=== PATIENT | female | born 1945 | race Caucasian/White ===

== ENCOUNTER → 2021-08-11 09:31 | Outpatient (CLI) | payer MEDICARE, OTHER, SELFPAY ==
[2021-08-11 11:33] LABS: COVID19 -Nasal RAPID Negative (Negative)
== END ==
PROVIDERS: Visit Provider Family Medicine Sleep Medicine
DX: Z20.822 Contact with and (suspected) exposure to COVID-19 (principal)
CPT/HCPCS: 87635; C9803

== ENCOUNTER → 2021-10-21 10:37 | Outpatient (CLI) | payer MEDICARE, OTHER, SELFPAY ==
[2021-10-21 12:46] LABS: COVID19 -Nasal RAPID Negative (Negative)
== END ==
PROVIDERS: PCP Physician Assistant Medical; Visit Provider Surgery
DX: Z20.822 Contact with and (suspected) exposure to COVID-19 (principal); Z01.812 Encounter for preprocedural laboratory examination
CPT/HCPCS: 87635; C9803

== ENCOUNTER 2021-10-22 10:07 | Day surgery (SDC) | payer MEDICARE, OTHER, SELFPAY ==
[2021-10-22 10:34] VITALS: BP 136/75; PULSE 76; RESP 16; TEMP 36.6; O2SAT 100
[2021-10-22 10:36] VITALS: BMI 27.8
[2021-10-22] MEDS: SODIUM CHLORIDE 0.9% 1,000 ML 84 ML IV (10:40)
--- NOTE | 2021-10-22 11:34 | PM.HP.1 ---
History of Present Illness History of Present Illness Chief complaint: SDC/Colonoscopy Narrative: History of large adenomatous colon polyp 5 years ago need for follow-up colonoscopy. Patient History Medical History (Updated 10/22/21 @ 10:32 by Yeny Lujan RN) Adenomatous colon polyp Osteopenia Surgical History (Updated 10/22/21 @ 10:25 by Yeny Lujan RN) History of colonoscopy with polypectomy History of hysterectomy History of tonsillectomy Family & Social History Social History: household members spouse Tobacco & Substance use: Tobacco type cigarettes Smoking Status Former smoker alcohol intake frequency a few times a month Substance Use Type does not use Meds Home Medications and Allergies Home Medications Medication Instructions Recorded Confirmed Type cholecalciferol (vitamin D3) 125 125 mcg PO DAILY 10/22/21 10/22/21 History mcg (5,000 unit) tablet (Vitamin D3) Allergies Allergy/AdvReac Type Severity Reaction Status Date / Time codeine AdvReac Intermediate Bad Verified 10/22/21 10:30 headache Exam Vital Signs (past 8 hours): - 10/22/21 10:34 Temperature 97.8 F Pulse Rate 76 Respiratory Rate 16 Blood Pressure 136/75 Pulse Oximetry 100 Oxygen Delivery Method Room Air Oxygen Delivery Method Room Air Narrative Exam Narrative: Oropharynx free of lesions Chest clear to auscultation percussion Cardiac exam reveals no S3 or murmur Assessment & Plan Assessment & Plan narrative: Assessment history of large colon polyp need for follow-up colonoscopy and this will probably be her last. Risks, benefits, alternatives have been explained. Time Spent With Patient Critical Care time: I spent a total of [] minutes of critical care time on this patient's care today; this time is exclusive of procedural time.
--- NOTE | 2021-10-22 11:35 | PM.OP.COLON ---
Operative Date/Time/Diagnoses Date of procedure: 10/22/21 Procedure & Clinicians Study performed: Colonoscopy Indications: History of large adenomatous colon polyp 6 years ago with colonoscopy 5 years ago showing it to be completely removed. Need for follow-up colonoscopy Surgeon: Kathy England Procedure Notes Procedure in detail: After informed consent was obtained the patient was placed in left lateral position. The video colonoscope was introduced the rectum slowly advanced cecum. On slow withdrawal mucosa was carefully examined. Preparation was good. The scope was removed. The patient tolerated procedure well. Blood loss none Complications none Sedation mac Findings 1. Tattoo present at 60 cm/splenic flexure. Photos taken 2. Scattered mild diverticulosis 3. Otherwise negative colonoscopy to cecum Given minutes Stremler's age and negative colonoscopy this could represent her last screening exam.
[2021-10-22 12:05] VITALS: BP 95/62; PULSE 69; RESP 16; TEMP 36.4; O2SAT 96
[2021-10-22 12:11] VITALS: BP 111/70; PULSE 65; RESP 18; O2SAT 98
[2021-10-22 12:12] VITALS: BP 110/65; PULSE 68; RESP 13; TEMP 36.7; O2SAT 98
--- NOTE | 2021-10-22 12:13 | SUR.PHASEI ---
Stable pacu stay
[2021-10-22 12:16] VITALS: BP 110/65; PULSE 66; RESP 19; O2SAT 98
[2021-10-22 12:28] VITALS: BP 128/72; PULSE 62; RESP 18; TEMP 36.6; O2SAT 99
== END 2021-10-22 12:43 | disposition home or self-care (01) ==
PROVIDERS: PCP Physician Assistant Medical; Referring Provider Internal Medicine Gastroenterology; Visit Provider Internal Medicine Gastroenterology
PROC: 0DJD8ZZ Inspection of Lower Intestinal Tract, Via Natural or Artificial Opening Endoscopic (ICD-10-PCS; CPT 45378; principal; 2021-10-22 11:30)
DX: Z12.11 Encounter for screening for malignant neoplasm of colon (principal); Z86.010 Personal history of colon polyps; K57.30 Diverticulosis of large intestine without perforation or abscess without bleeding
CPT/HCPCS: G0105; J2704

== ENCOUNTER 2022-11-21 07:14 | Emergency (ER) | payer MEDICARE, OTHER, SELFPAY ==
[2022-11-21] VITALS (14 sets, daily range): BP systolic 118–174; BP diastolic 58–100; PULSE 65–86; RESP 13–29; TEMP 36.7; O2SAT 95–100; BMI 28.5
--- NOTE | 2022-11-21 07:34 | DI.CT.S_ITS ---
PROCEDURE: CT HEAD/BRAIN WO CON INDICATIONS: woke up with vertigo TECHNIQUE: Noncontrast 4.5 mm thick angled axial sections acquired from the foramen magnum to the vertex, with coronal and sagittal reformats. For radiation dose reduction, the following was used: automated exposure control, adjustment of mA and/or kV according to patient size. COMPARISON: None. FINDINGS: Image quality: Excellent. CSF spaces: Basal cisterns are patent. No extra-axial fluid collections. Ventricles are normal in size and shape. Brain: No midline shift. No intracranial masses or hemorrhage. Rg-white matter interface is normal. Skull and face: Calvarium and visualized facial bones are intact, without suspicious lesions. Sinuses: Visualized sinuses and mastoids are clear. IMPRESSION: No acute intracranial pathology. Dictated by: Kali Contreras M.D. on 11/21/2022 at 8:39 Approved by: Kali Contreras M.D. on 11/21/2022 at 8:40
--- NOTE | 2022-11-21 07:35 | DI.CT.S_ITS ---
PROCEDURE: CT ANGIO HEAD AND NECK INDICATIONS: woke up with vertigo TECHNIQUE: After the administration of intravenous contrast, 1 mm thick sections acquired from the aortic arch through the [place] of [place]. 3-dimensional tphqyaz-wcknumuru-tmuugnamxn (MIP) and/or volume rendering reformats were acquired of the central intracranial vasculature and neck separately. For radiation dose reduction, the following was used: automated exposure control, adjustment of mA and/or kV according to patient size. COMPARISON: None. FINDINGS: Image quality: Diagnostic. BRAIN: CSF spaces: Ventricles are normal in size and shape. Basal cisterns are patent. No extra-axial fluid collections. Brain: No midline shift. No intracranial bleeds or masses. Rg-white matter interface appears intact. Skull and face: Calvarium and facial bones appear intact, without suspicious lesions. Orbits appear normal. Sinuses: Sinuses and mastoids are clear. HEAD CT ANGIOGRAPHY: Anterior circulation: Intracranial internal carotid arteries are normal in size and flow. The flow within the paired anterior cerebral arteries is normal and symmetric. The flow within the middle cerebral arteries is normal and symmetric. The anterior communicating artery is seen. No aneurysms are seen. Posterior circulation: Visualized portions of the vertebral arteries demonstrate normal caliber, and join to form a normal appearing basilar artery. Flow within the posterior cerebral arteries is normal and symmetric. No aneurysms are seen. NECK CT ANGIOGRAPHY: Carotid system: The great vessels demonstrate a conventional anatomy as they arise from the aortic arch. The origins of the common carotid arteries appear patent. The common carotid arteries demonstrate normal caliber and courses. The bifurcation regions are both widely patent. The internal carotid arteries demonstrate normal calibers and courses. Posterior circulation: The origins of the vertebral arteries both appear widely patent. The more superior extracranial portions of both vertebral arteries also demonstrate normal courses and calibers. They join to form a normal appearing basilar artery. PCOM on the right. Soft tissues: Visualized neck soft tissues demonstrate no suspicious abnormalities. Bones: No suspicious bony lesions. Visualized cervical spine appears normally aligned. IMPRESSION: No large vessel occlusion. Any quantitative measurements of stenosis were performed using NASCET criteria. Dictated by: Kali Contreras M.D. on 11/21/2022 at 8:40 Approved by: Kali Contreras M.D. on 11/21/2022 at 8:44
--- NOTE | 2022-11-21 07:35 | ED_ITS ---
HPI - Neuro Symptoms/Deficit General Chief Complaint: Dizziness Stated Complaint: Sweaty, Dizzy Time Seen by Provider: 11/21/22 07:20 Source: patient and EMS Mode of arrival: EMS Limitations: no limitations History of Present Illness HPI Narrative: 77-year-old female with history of prior episode labyrinthitis, hysterectomy no other reported medical issues states she woke up this morning feeling very sweaty in the room was spinning. She states initially on her back just did not feel right was very sweaty and then rolled over and states the room was spinning. Any time she opens her eyes or tries to move her head the room is spinning she had 1 prior episode where she states she had labyrinthitis in the past. She states it was not intense and that episode started while she was seated on the couch. She states no headaches, no vision changes no blurred or double vision. No chest pain or pressure no shortness of breath. She is had nausea but no vomiting this morning. No diarrhea constipation, no dysuria urgency or frequency no incontinence. She denies any numbness, tingling weakness of her extremities or face. No new speech changes. She denies fevers or chills. No nasal congestion, no ear pain or fullness. Patient states no only daily medications or izfq-vbr-hduzkro. Patient had hysterectomy in their 40s. States no known drug allergies but codeine gives her a bad headache. No tobacco, rare alcohol none recently, no illicit. Her primary care is MATT pettit. On Anticoagulants: No Related Data Home Medications Medication Instructions Recorded Confirmed cholecalciferol (vitamin D3) 125 125 mcg PO DAILY 10/22/21 10/22/21 mcg (5,000 unit) tablet (Vitamin D3) Previous Rx's Medication Instructions Recorded meclizine 50 mg tablet 50 mg PO TID PRN dizziness #20 tabs 11/21/22 ondansetron 4 mg disintegrating 4 mg PO Q6H PRN nausea and 11/21/22 tablet vomiting #10 tabs Allergies Allergy/AdvReac Type Severity Reaction Status Date / Time codeine AdvReac Intermediate Bad Verified 11/21/22 07:28 headache Review of Systems Review of Systems ROS Unobtainable: All systems reviewed & are unremarkable except as noted in HPI and below Hematologic/Lymphatic On Anticoagulants: No Patient History Medical History Adenomatous colon polyp Osteopenia Surgical History History of colonoscopy with polypectomy History of hysterectomy History of tonsillectomy Social History household members: spouse Smoking Status: Former smoker Smoking Status: Former smoker alcohol intake frequency: a few times a month Substance Use Type: does not use Exam Narrative Exam Narrative: GEN: well nourished, well appearing female, alert and oriented x 3, patient appears to be in [id number] distress. HEENT: Atraumatic, pupils are equal round reactive to light, extraocular movements are intact, no nystagmus, nares are clear, TMs are clear with no fluid, there is no conjunctival pallor. Throat is clear without any exudates, erythema, tonsillar enlargement or uvular deviation, no facial droop. HEART: Regular rate and rhythm without murmur, clicks, rubs. Pulses are equal in upper and lower extremities LUNGS:Lungs clear to auscultation, no wheezes, rales, crackles, chest moves symmetrically ABD:bowel sounds normal, soft, non-tender, no guarding, rebound, rigidity, no masses noted, no hepatosplenomegaly :No CVA tenderness MSCL: Non-tender, no muscle atrophy, muscles strength 5/5 upper and lower extremities, full range of motion, normal gait NEURO:CN 2-12 intact, sensation normal, finger nose finger test normal, heel zapata test normal. SKIN: No rash, erythema or other skin changes Initial Vital Signs Initial Vital Signs: Vital Signs Pulse Rate 71 11/21/22 07:19 Respiratory Rate 16 11/21/22 07:19 Scores NIH Stroke Scale Level of Conciousness: Alert, keenly responsive Ask month/age: Answers both questions correctly. Open/close eyes, close hand: Performs both tasks correctly Best gaze horizontal: Normal Visual burch: No visual loss Facial palsy: Normal symetrical movement Left arm drift: No drift for full 10 sec Right arm drift: No drift for full 10 sec Left leg drift: No drift for full 5 sec Right leg drift: No drift for full 5 sec Limb ataxia: Absent Sensory on face/arms/legs: Normal, no sensory loss Best language: No aphasia, normal Dysarthria: Normal Extinction or inattention: No abnormality Total NIH Stroke scale score: 0 Course Orders Ordered: Discontinued Medications Sodium Chloride (Normal Saline 0.9%) 1,000 mls @ 1,000 mls/hr IV BOLUS ONE Stop: 11/21/22 08:33 Last Infusion: 11/21/22 09:34 Dose: 0 mls/hr Documented By: Admin: 11/21/22 07:59 Dose: 1,000 mls/hr Documented By: Meclizine HCl (Meclizine Hcl 12.5 Mg Tablet) 50 mg PO NOW ONE Stop: 11/21/22 07:35 Last Admin: 11/21/22 07:55 Dose: 50 mg Documented By: Ondansetron HCl (Ondansetron 4 Mg/2 Ml Inj) 4 mg IV NOW ONE Stop: 11/21/22 07:35 Last Admin: 11/21/22 07:53 Dose: 4 mg Documented By: Vital Signs Vital signs: Vital Signs - 8 hr 11/21/22 11:00 11/21/22 11:30 11/21/22 11:30 Temperature Pulse Rate 86 74 Respiratory Rate 29 H 20 Blood Pressure 143/66 H Pulse Oximetry 96 98 Oxygen Delivery Method 11/21/22 13:12 11/21/22 12:51 Temperature 98.0 F Pulse Rate 82 Respiratory Rate 18 Blood Pressure 150/81 H Pulse Oximetry 95 Oxygen Delivery Method Room Air MDM - Neuro Symptoms/Deficit Lab Data 11/21/22 08:01 11/21/22 08:01 Labs: Lab Results 11/21/22 11/21/22 11/21/22 Range/Units 08:00 08:01 08:01 WBC 4.4 L (4.5-11.0) X10^3/uL RBC 4.29 (4.0-5.2) X10^6/uL Hgb 13.8 (12.0-16.0) g/dL Hct 39.5 (36-46) % MCV 92.0 (80-100) fL MCH 32.1 (26-34) PG MCHC 34.9 (30-36) % RDW 13.6 (11.6-14.8) % Plt Count 127 L (150-400) X10^3/uL Neut % (Auto) 63.0 (50-75) % Lymph % (Auto) 26.6 (25-40) % [place] % (Auto) 7.0 (3-14) % Eos % (Auto) 3.1 (2-4) % Baso % (Auto) 0.3 (0-2) % Neut # (Auto) 2800 (5329-2073) /uL Lymph # (Auto) 1200 (2956-0006) /uL [place] # (Auto) 300 (0-900) /uL Eos # (Auto) 100 (0-450) /uL Baso # (Auto) 0 (0-100) /uL PT 11.1 (10.1-12.7) SECONDS INR 1.0 (0.9-1.3) APTT 23 L (26-36) SECONDS Sodium (137-145) mmol/L Potassium (3.4-5.1) mmol/L Chloride (98-107) mmol/L Carbon Dioxide (22-32) mmol/L BUN (7-17) mg/dL Creatinine (0.52-1.04) mg/dL Estimated GFR (>60) mL/min BUN/Creatinine Ratio (6-22) Glucose (80-110) mg/dL Calcium (8.4-10.2) mg/dL Total Bilirubin (0.2-1.3) mg/dL AST (14-36) IU/L ALT (<35) IU/L Alkaline Phosphatase (38-126) U/L Total Creatine Kinase (30-135) U/L Troponin I (0.01-0.034) ng/mL Total Protein (6.3-8.2) g/dL Albumin (3.5-5.0) g/dL Globulin (1.7-4.1) g/dL Albumin/Globulin Ratio (1.0-2.8) Urine Color Straw Urine Appearance Sl cloudy Urine pH 7.0 (4.5-8.0) Ur Specific [place] 1.020 (1.000-1.035) Urine Protein Negative (Negative) Urine Glucose (UA) Trace H (Negative) g/dL Urine Ketones Negative (NEGATIVE) Urine Occult Blood Negative (Negative) Urine Nitrate Negative (Negative) Urine Bilirubin Negative (NEGATIVE) Urine Urobilinogen 0.2 (0.2) E.U./dL Ur Leukocyte Esterase Negative (NEGATIVE) Urine RBC None seen (0-5/HPF) Urine WBC None seen (0-5/HPF) Ur Squamous Epith Cells 0-1 /hpf (0-5/HPF) Amorphous Sediment 2+ Urine Bacteria None seen (None) Ur Culture Indicated? Cult not indicated U Opiates 300ng/mL cut (Negative) Ur Oxycodone Screen (Negative) Urine Methadone Screen (Negative) Ur Barbiturates Screen (Negative) U Tricyclic Antidepress (Negative) Ur Phencyclidine Scrn (Negative) Ur Amphetamines Screen (Negative) U Methamphetamines Scrn (Negative) Ur MDMA Scrn (Ecstasy) (Negative) U Benzodiazepines Scrn (Negative) Urine Cocaine Screen (Negative) U Marijuana (THC) Screen (Negative) Ethyl Alcohol ( - 10) mg/dL SARS-CoV-2 (PCR) (Negative) 11/21/22 11/21/22 11/21/22 Range/Units 08:01 08:01 08:07 WBC (4.5-11.0) X10^3/uL RBC (4.0-5.2) X10^6/uL Hgb (12.0-16.0) g/dL Hct (36-46) % MCV (80-100) fL MCH (26-34) PG MCHC (30-36) % RDW (11.6-14.8) % Plt Count (150-400) X10^3/uL Neut % (Auto) (50-75) % Lymph % (Auto) (25-40) % [place] % (Auto) (3-14) % Eos % (Auto) (2-4) % Baso % (Auto) (0-2) % Neut # (Auto) (3320-9829) /uL Lymph # (Auto) (7938-6294) /uL [place] # (Auto) (0-900) /uL Eos # (Auto) (0-450) /uL Baso # (Auto) (0-100) /uL PT (10.1-12.7) SECONDS INR (0.9-1.3) APTT (26-36) SECONDS Sodium 141 (137-145) mmol/L Potassium 4.1 (3.4-5.1) mmol/L Chloride 110 H (98-107) mmol/L Carbon Dioxide 26 (22-32) mmol/L BUN 21 H (7-17) mg/dL Creatinine 0.70 (0.52-1.04) mg/dL Estimated GFR > 60 (>60) mL/min BUN/Creatinine Ratio 30.0 H (6-22) Glucose 137 H (80-110) mg/dL Calcium 8.1 L (8.4-10.2) mg/dL Total Bilirubin 0.9 (0.2-1.3) mg/dL AST 28 (14-36) IU/L ALT 21 (<35) IU/L Alkaline Phosphatase 63 (38-126) U/L Total Creatine Kinase 100 (30-135) U/L Troponin I < 0.012 (0.01-0.034) ng/mL Total Protein 6.9 (6.3-8.2) g/dL Albumin 4.0 (3.5-5.0) g/dL Globulin 2.9 (1.7-4.1) g/dL Albumin/Globulin Ratio 1.4 (1.0-2.8) Urine Color Urine Appearance Urine pH (4.5-8.0) Ur Specific [place] (1.000-1.035) Urine Protein (Negative) Urine Glucose (UA) (Negative) g/dL Urine Ketones (NEGATIVE) Urine Occult Blood (Negative) Urine Nitrate (Negative) Urine Bilirubin (NEGATIVE) Urine Urobilinogen (0.2) E.U./dL Ur Leukocyte Esterase (NEGATIVE) Urine RBC (0-5/HPF) Urine WBC (0-5/HPF) Ur Squamous Epith Cells (0-5/HPF) Amorphous Sediment Urine Bacteria (None) Ur Culture Indicated? U Opiates 300ng/mL cut Negative (Negative) Ur Oxycodone Screen Negative (Negative) Urine Methadone Screen Negative (Negative) Ur Barbiturates Screen Negative (Negative) U Tricyclic Antidepress Negative (Negative) Ur Phencyclidine Scrn Negative (Negative) Ur Amphetamines Screen Negative (Negative) U Methamphetamines Scrn Negative (Negative) Ur MDMA Scrn (Ecstasy) Negative (Negative) U Benzodiazepines Scrn Negative (Negative) Urine Cocaine Screen Negative (Negative) U Marijuana (THC) Screen Negative (Negative) Ethyl Alcohol < 10 ( - 10) mg/dL SARS-CoV-2 (PCR) Negative (Negative) Urine Dip Bedside Urine Glucose Negative Bedside Urine Bilirubin - Negative Bedside Urine Ketone - Negative Urine Specific [place] 1.005 Bedside Urine Occult Blood - Negative Bedside Urine pH 8.0 Bedside Urine Protein - Negative Bedside Urine Urobilinogen - Negative Bedside Urine Nitrite - Negative Bedside Urine Leukocytes - Negative Esterase Imaging Data CT scan - head: Radiologist's Impression: [address] [address] [address] Scan Report Signed Patient: Shauna Alanis MR#: [id number] : 1945 Acct:[id number] Age/Sex: 77 / F Date of Service: 11/21/22 Loc: ED Accession Number: [id number] ?? Procedure: CT head/brain wo con Ordering Provider: Aileen German D.O. PROCEDURE:? CT HEAD/BRAIN WO CON ? INDICATIONS:? woke up with vertigo ? TECHNIQUE:? Noncontrast 4.5 mm thick angled axial sections acquired from the foramen magnum to the vertex, with coronal and sagittal reformats.? For radiation dose reduction, the following was used:? automated exposure control, adjustment of mA and/or kV according to patient size.? ? COMPARISON:? None. ? FINDINGS:? Image quality:? Excellent.? ? CSF spaces:? Basal cisterns are patent.? No extra-axial fluid collections.? Ventricles are normal in size and shape.? ? Brain:? No midline shift.? No intracranial masses or hemorrhage.? Rg-white matter interface is normal.? ? Skull and face:? Calvarium and visualized facial bones are intact, without suspicious lesions.? ? Sinuses:? Visualized sinuses and mastoids are clear.? ? IMPRESSION:? No acute intracranial pathology.? ? ? Dictated by: Kali Contreras M.D. on 11/21/2022 at 8:39 ? ? Approved by: Kali Contreras M.D. on 11/21/2022 at 8:40? CTA - brain/neck: Radiologist's Impression: Shauna Alanis??77??F??1945 ? Allergy/Adv: codeine Close Head/Neck CTA (Signed) Kali Contreras - 11/21/[address] (Signed) Kali Contreras - 11/21/22 Launch?Image [address] [address] [address] Scan Report Signed Patient: Shauna Alanis MR#: [id number] : 1945 Acct:[id number] Age/Sex: 77 / F Date of Service: 11/21/22 Loc: ED Accession Number: [id number] ?? Procedure: CT angio head and neck Ordering Provider: Aileen German D.O. PROCEDURE:? CT ANGIO HEAD AND NECK ? INDICATIONS:? woke up with vertigo ? TECHNIQUE:? After the administration of intravenous contrast, 1 mm thick sections acquired from the aortic arch through the [place] of [place].? 3-dimensional nfwdnyj-lzkxsxlod-bffluschfi (MIP) and/or volume rendering reformats were acquired of the central intracranial vasculature and neck separately. For radiation dose reduction, the following was used:? automated exposure control, adjustment of mA and/or kV according to patient size.? ? COMPARISON:? None. ? FINDINGS:? Image quality:? Diagnostic.? ? BRAIN:? CSF spaces:? Ventricles are normal in size and shape.? Basal cisterns are patent.? No extra-axial fluid collections.? ? Brain:? No midline shift.? No intracranial bleeds or masses.? Rg-white matter interface appears intact.? ? Skull and face:? Calvarium and facial bones appear intact, without suspicious lesions.? Orbits appear normal.? ? Sinuses:? Sinuses and mastoids are clear.? ? HEAD CT ANGIOGRAPHY:? Anterior circulation:? Intracranial internal carotid arteries are normal in size and flow.? The flow within the paired anterior cerebral arteries is normal and symmetric.? The flow within the middle cerebral arteries is normal and symmetric.? The anterior communicating artery is seen.? No aneurysms are seen.? ? Posterior circulation:? Visualized portions of the vertebral arteries demonstrate normal caliber, and join to form a normal appearing basilar artery.? Flow within the posterior cerebral arteries is normal and symmetric.? No aneurysms are seen.? ? NECK CT ANGIOGRAPHY:? Carotid system:? The great vessels demonstrate a conventional anatomy as they arise from the aortic arch.? The origins of the common carotid arteries appear patent.? The common carotid arteries demonstrate normal caliber and courses.? The bifurcation regions are both widely patent.? The internal carotid arteries demonstrate normal calibers and courses.? ? Posterior circulation:? The origins of the vertebral arteries both appear widely patent.? The more superior extracranial portions of both vertebral arteries also demonstrate normal courses and calibers.? They join to form a normal appearing basilar artery.? PCOM on the right. ? Soft tissues:? Visualized neck soft tissues demonstrate no suspicious abnormalities.? ? Bones:? No suspicious bony lesions.? Visualized cervical spine appears normally aligned.? IMPRESSION:? No large vessel occlusion. ? Any quantitative measurements of stenosis were performed using NASCET criteria.? ? ? Dictated by: Kali Contreras M.D. on 11/21/2022 at 8:40 ? ? Approved by: Kali Contreras M.D. on 11/21/2022 at 8:44?? MR brain: Radiologist's Impression: Close Brain MRI (Signed) Matheus Gallegos - 11/21/22 Head/Neck CTA (Signed) Kali Contreras - 11/21/[address] (Signed) Kali Contreras - 11/21/22 Launch?[place] [address] Magnetic Resonance Report Signed Patient: Shauna Alanis MR#: [id number] : 1945 Acct:[id number] Age/Sex: 77 / F Date of Service: 11/21/22 Loc: ED Accession Number: [id number] ?? Procedure: MR head/brain wo con Ordering Provider: Aileen German D.O. PROCEDURE:? MR HEAD/BRAIN WO CON ? INDICATIONS:? vertigo ? TECHNIQUE:? Noncontrast axial T1 spin echo, axial T2 fast spin echo, sagittal and axial FLAIR, coronal T2 fast spin echo, axial gradient echo, axial diffusion and ADC through the brain.? ? COMPARISON:? [facility], CT, CT ANGIO HEAD AND NECK, 11/21/2022, 7:48. ? FINDINGS:? Image quality:? Excellent.? ? CSF Spaces:? Basal cisterns are patent.? No extra-axial fluid collections.? Ventricles are normal in size and shape.? ? Brain:? No intracranial masses or hemorrhage.? Rg/white matter interface is normal.? Brainstem appears normal.? Diffusion-weighted images demonstrate no acute ischemic insult.? No chronic ischemic insults.? Normal intravascular flow voids are present.? A few scattered T2/FLAIR hyperintensities in the subcortical white matter common normal for patient age. ? Skull and face:? Calvarium has normal marrow signal.? Orbits appear normal.? ? Sinuses:? Sinuses and mastoids are clear.? ? IMPRESSION:? No ischemia. ? ? Dictated by: Matheus Gallegos M.D. on 11/21/2022 at 11:28 ? ? Approved by: Matheus Gallegos M.D. on 11/21/2022 at 11:31?? ECG Data Attestation: I personally reviewed and interpreted this ECG as follows: Prior ECG tracings: not available for review Interpretation: Sinus rhythm rate of 65 NH 178 QRS 80 QTC 443. No acute ST elevation or depression appreciated . No prior for comparison. MDM Narrative Medical decision making narrative: This is a 77-year-old female who presents with complaint of vertigo upon awakening. Patient was sweaty she appreciates the room spinning. She has no acute neurologic changes on examination she is had 1 prior episode that started abruptly while sitting in the past. NIH is 0 at this time. She received 250 mL saline with EMS but no other interventions. Was given doses Zofran and meclizine orally here. Patient does not have any other known medical issues she does follow with a doctor regularly. Including including head CT CT angio and labs was obtained. Patient's head CT shows no acute change, CTA is negative for occlusion, aneurysm or other acute change. White count of 4.4 with platelets of 127 otherwise normal hemoglobin hematocrit, coags appropriate, chloride 110 BUN 21, glucose 137 normal electrolytes sodium is 141 potassium 4.1, negative troponin and LFTs. U tox and ETOH is negative. COVID swab is negative. Discussed with patient she does note that she had a period where she is had several episodes of vertigo in the past. She had been told his labyrinthitis she is had 2 MRIs in the past. She does note that she now does have double vision although her symptoms have improved. She states she is had eye exams they have not found anything wrong. Patient and I discussed less likely neurologic or stroke but after developing some new double vision when recommend that we do MRI. Patient is agreeable. MR is negative for ischemia. Patient has not seen ENT in the past was recommended to follow-up particularly she is having more frequent episodes. Patient feels agreeable we will send script for meclizine to the [facility]. It is not open until Wednesday so discussed she can try a dose of 1 or 2 tablets of Benadryl [id number] if persistent symptoms through the weekend. Discussed return precautions all questions answered. Stroke Core Measures Exclusion Criteria TPA in CVA: Symptom Onset >3 or 4.5 Hours Discharge Plan Departure Patient Disposition: Home Clinical Impression: Vertigo Instructions: DI for Vertigo Activity Restrictions/Additional Instructions: Follow-up with ENT for further evaluation of your vertigo. Contact information is included below. Call to set up an appointment. Take meclizine 1-2 tablets every 6 hours as needed for vertigo symptoms. If you are very nauseated you can take 1 tablet of Zofran every 6 hours as needed. You can take this 20 minutes prior to meclizine if you are having difficulty keeping medications down. Prescription was sent to the [facility] pharmacy. Please return for fevers, severe headaches, rapidly worsening vertigo symptoms or inability to ambulate safely, persistent vomiting, new numbness, tingling or weakness, sudden vision changes, loss of bowel or bladder control or other new or concerning changes. Prescriptions: New meclizine 50 mg tablet 50 mg PO TID PRN (Reason: dizziness) Qty: 20 0RF ondansetron 4 mg tablet,disintegrating 4 mg PO Q6H PRN (Reason: nausea and vomiting) Qty: 10 0RF No Action cholecalciferol (vitamin D3) [Vitamin D3] 125 mcg (5,000 unit) Tablet 125 mcg PO DAILY Referrals: Dar Dunlap MD [Physician] - Gilbert Wilkinson MD [Physician] - Gabbie Pettit PA-C [Primary Care Provider] - Stand Alone Forms: Patient Portal/API
[2022-11-21] MEDS: ONDANSETRON 4 MG/2 ML INJ IV (07:53)
[2022-11-21] MEDS: MECLIZINE HCL 12.5 MG TABLET 50 MG PO (07:55)
[2022-11-21] MEDS: SODIUM CHLORIDE 0.9% 1,000 ML 1000 ML IV (07:59)
[2022-11-21 08:23] LABS: UR Morphine/Opiate cutoff 300 Negative (Negative); Ur Creatinine Normal (Normal); Ur Specific Gravity Normal (Normal); Urine Amphetamines Negative (Negative); Urine Barbiturates Negative (Negative); Urine Benzodiazepines Negative (Negative); Urine Cocaine Negative (Negative); Urine MDMA Negative (Negative); Urine Methadone Negative (Negative); Urine Methamphetamines Negative (Negative); Urine Oxycodone Negative (Negative); Urine Phencyclidine Negative (Negative); Urine Tetrahydrocannabinol Negative (Negative); Urine Tricyclic Antidepressant Negative (Negative); Urine pH Normal (Normal)
--- NOTE | 2022-11-21 08:24 | PC.NURSE ---
Pt stood to pivot to commode and immediately became nauseated. Pt sat on bed and vomited. Gave Zofran and pt was then able to transfer with assistance. Pt reports improvement.
[2022-11-21 08:29] LABS: Add Manual Diff / Slide Review NO; Basophils Absolute Auto 0 /uL (0-100); Basophils Percent Auto 0.3 % (0-2); Eosinophils Absolute Auto 100 /uL (0-450); Eosinophils Percent Auto 3.1 % (2-4); Hematocrit 39.5 % (36-46); Hemoglobin 13.8 g/dL (12.0-16.0); Lymphocytes Absolute Auto 1200 /uL (1100-4500); Lymphocytes Percent Auto 26.6 % (25-40); Mean Corpuscular HGB Conc 34.9 % (30-36); Mean Corpuscular Hemoglobin 32.1 PG (26-34); Monocytes Absolute Auto 300 /uL (0-900); Neutrophils Absolute Auto 2800 /uL (1500-7000); Platelet Count 127 X10^3/uL (150-400); Red Blood Cell Count 4.29 X10^6/uL (4.0-5.2); Red Cell Distribution Width 13.6 % (11.6-14.8); White Blood Cell Count 4.4 X10^3/uL (4.5-11.0)
[2022-11-21 08:34] LABS: Prothrombin Time 11.1 SECONDS (10.1-12.7)
[2022-11-21 08:36] LABS: PTT Partial Thromboplastin Tim 23 SECONDS (26-36)
[2022-11-21 08:38] LABS: Alanine Aminotransferase 21 IU/L (<35); Albumin Globulin Ratio 1.4 (1.0-2.8); Alkaline Phosphatase 63 U/L (38-126); Aspartate Aminotransferase 28 IU/L (14-36); Bilirubin Total 0.9 mg/dL (0.2-1.3); Blood Urea Nitrogen 21 mg/dL (7-17); Calcium 8.1 mg/dL (8.4-10.2); Carbon Dioxide 26 mmol/L (22-32); Chloride 110 mmol/L (98-107); Creatine Kinase 100 U/L (30-135); Estimated Glomerular Filt Rate > 60 mL/min (>60); Ethanol (ETOH) < 10 mg/dL; Globulin 2.9 g/dL (1.7-4.1); Glucose 137 mg/dL (80-110); Potassium 4.1 mmol/L (3.4-5.1); Sodium 141 mmol/L (137-145); Total Protein 6.9 g/dL (6.3-8.2)
[2022-11-21 08:47] LABS: HEMOLYSIS 67 (0-50)
[2022-11-21 08:49] LABS: Troponin I < 0.012 ng/mL (0.01-0.034)
[2022-11-21 08:55] LABS: COVID19 -Nasal RAPID Negative (Negative)
--- NOTE | 2022-11-21 09:30 | DI.MRI.S_ITS ---
PROCEDURE: MR HEAD/BRAIN WO CON INDICATIONS: vertigo TECHNIQUE: Noncontrast axial T1 spin echo, axial T2 fast spin echo, sagittal and axial FLAIR, coronal T2 fast spin echo, axial gradient echo, axial diffusion and ADC through the brain. COMPARISON: [facility], CT, CT ANGIO HEAD AND NECK, 11/21/2022, 7:48. FINDINGS: Image quality: Excellent. CSF Spaces: Basal cisterns are patent. No extra-axial fluid collections. Ventricles are normal in size and shape. Brain: No intracranial masses or hemorrhage. Rg/white matter interface is normal. Brainstem appears normal. Diffusion-weighted images demonstrate no acute ischemic insult. No chronic ischemic insults. Normal intravascular flow voids are present. A few scattered T2/FLAIR hyperintensities in the subcortical white matter common normal for patient age. Skull and face: Calvarium has normal marrow signal. Orbits appear normal. Sinuses: Sinuses and mastoids are clear. IMPRESSION: No ischemia. Dictated by: Matheus Gallegos M.D. on 11/21/2022 at 11:28 Approved by: Matheus Gallegos M.D. on 11/21/2022 at 11:31
[2022-11-21 10:52] LABS: Bilirubin Urine UA NEGATIVE (NEGATIVE); Glucose Urine UA TRACE g/dL (Negative); Ketones Urine UA NEGATIVE (NEGATIVE); Leukocyte Esterase Urine UA NEGATIVE (NEGATIVE); Nitrite Urine UA NEGATIVE (Negative); Occult Blood Urine UA NEGATIVE (Negative); Protein Urine UA NEGATIVE (Negative); Urobilinogen Urine UA 0.2 E.U./dL (0.2)
[2022-11-21 10:53] LABS: Appearance Urine UA SL CLOUDY; Color Urine UA Straw
[2022-11-21 10:55] LABS: Amorphous Sediment Urine 2+; Bacteria Urine None Seen; Culture Indicated Urine Cult Not Indicated; RBC Urine None Seen (0-5/HPF); Squamous Epithelial Cell Urine 0-1 /HPF (0-5/HPF); WBC Urine None Seen (0-5/HPF)
== END 2022-11-21 12:55 | disposition home or self-care (01) ==
PROVIDERS: Emergency Provider Emergency Medicine; PCP Physician Assistant Medical
DX: R42 Dizziness and giddiness (principal); H53.2 Diplopia; R29.700 NIHSS score 0; Z20.822 Contact with and (suspected) exposure to COVID-19
CPT/HCPCS: 70450; 70496; 70498; 70551; 80053; 80305; 80320; 81001; 81003; 82550; 84484; 85025; 85610; 85730; 87635; 93005; 93010; 96361; 96374; 99284; 99285; C9803; J2405; Q9967

== ENCOUNTER → 2023-04-01 08:40 | Outpatient (CLI) | payer MEDICARE, OTHER, SELFPAY ==
--- NOTE | 2023-04-01 22:13 | DI.NM.S_ITS ---
DATE OF SERVICE: 04/01/2023 PROCEDURE: Exercise perfusion study. INDICATIONS: Chest pain, hyperlipidemia. RADIOPHARMACEUTICAL: 24.6 millicurie technetium-99m Myoview IV was injected at stress and 12.1 millicurie technetium-99m Myoview IV was injected at rest. CARDIAC STRESS: The patient underwent exercise perfusion study under the supervision of an attending staff. She walked on Scott protocol for 5 minutes and achieved maximum heart rate of 150, which was 106% of target heart rate. Normal hemodynamic response. Resting blood pressure 144/78 and peak blood pressure systolic 188 and diastolic reported to be 96. IRMA -3%. Baseline rhythm sinus. During stress, no convincing ischemic changes seen. At peak exercise, patient had isolated frequent PVCs without any ventricular tachycardia. No chest pain or anginal symptoms. RAW DATA: There is increased subdiaphragmatic activity. GATED STUDY: Resting LV ejection fraction 74% and stress LV ejection fraction 83% without any obvious wall motion abnormalities. Resting end- diastolic volume 81 mL. TID ratio 0.95, which is within normal limits. Lung/heart ratio 0.39, which is within normal limits. MYOCARDIAL PERFUSION SCAN: Please note, this patient does not have any stress prone images. Stress supine and resting supine images were compared to each other. Stress supine and resting supine images revealed predominantly fixed, small size, mildly decreased perfusion of distal anterior apex. No reversible ischemia. CONCLUSION: 1. No obvious reversible ischemia. 2. Fixed distal anterior apical small sized defect. That segment is moving well. Possibility of apical thinning. No significant perfusion defect overall in left anterior descending artery distribution, right coronary artery distribution or circumflex distribution. Fair exercise tolerance. No anginal symptoms. Preserved left ventricular function. Hence, overall low-risk exercise perfusion study. Correlate clinically. There were no stress prone images. Shauna Alanis - AERONAUTICAL INSPECTOR/fn/MT doc#: [id number]/job#: [id number] dd: 04/01/2023 16:37:00 dt: 04/01/2023 22:01:00 DICTATING MD/COPIES TO: Sergey Vilchis MD COPIES MNE: VAL;
== END ==
PROVIDERS: PCP Physician Assistant Medical; Referring Provider Physician Assistant Medical; Visit Provider Physician Assistant Medical
DX: R07.89 Other chest pain (principal)
CPT/HCPCS: 78452; 93017; A9502

== ENCOUNTER 2024-05-30 18:29 | Emergency (ER) | payer MEDICARE, OTHER, SELFPAY ==
[2024-05-30] VITALS (10 sets, daily range): BP systolic 102–152; BP diastolic 55–78; PULSE 83–115; RESP 10–22; TEMP 37.1; O2SAT 92–96; BMI 28.3
--- NOTE | 2024-05-30 18:51 | DI.RAD.S_ITS ---
PROCEDURE: XR CHEST 1V INDICATIONS: Shortness of breath TECHNIQUE: One view of the chest was acquired. COMPARISON: None. FINDINGS: Surgical changes and devices: None. Lungs and pleura: Lungs are clear. No pleural effusions or pneumothorax. Mediastinum: Mediastinal contours appear normal. Heart size is normal. Bones and chest wall: No suspicious bony lesions. Overlying soft tissues appear unremarkable. IMPRESSION: No acute cardiopulmonary abnormality is seen. Dictated by: Cesar Vasquez M.D. on 05/30/2024 at 19:54 Approved by: Cesar Vasquez M.D. on 05/30/2024 at 19:54
--- NOTE | 2024-05-30 18:51 | EKG_ITS ---
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
[2024-05-30] MEDS: ACETAMINOPHEN 325 MG TABLET 975 MG PO (18:56)
[2024-05-30 20:17] LABS: Add Manual Diff / Slide Review NO; Basophils Absolute Auto 0 /uL (0-100); Basophils Percent Auto 0.3 % (0-2); Eosinophils Absolute Auto 0 /uL (0-450); Eosinophils Percent Auto 0.2 % (2-4); Hematocrit 42.2 % (36-46); Hemoglobin 14.8 g/dL (12.0-16.0); Lymphocytes Absolute Auto 1000 /uL (1100-4500); Lymphocytes Percent Auto 10.4 % (25-40); Mean Corpuscular HGB Conc 35.1 % (30-36); Mean Corpuscular Hemoglobin 31.4 PG (26-34); Mean Corpuscular Volume 89.6 fL (80-100); Monocytes Absolute Auto 700 /uL (0-900); Monocytes Percent Auto 7.3 % (3-14); Neutrophils Absolute Auto 7900 /uL (1500-7000); Neutrophils Percent Auto 81.8 % (50-75); Platelet Count 132 X10^3/uL (150-400); Red Blood Cell Count 4.71 X10^6/uL (4.0-5.2); Red Cell Distribution Width 13.6 % (11.6-14.8); White Blood Cell Count 9.6 X10^3/uL (4.5-11.0)
[2024-05-30 20:27] LABS: Alanine Aminotransferase 54 IU/L (<35); Albumin Globulin Ratio 1.3 (1.0-2.8); Alkaline Phosphatase 69 U/L (38-126); Aspartate Aminotransferase 53 IU/L (14-36); BUN Creatinine Ratio 18.8 (6-22); Bilirubin Total 1.2 mg/dL (0.2-1.3); Blood Urea Nitrogen 13 mg/dL (7-17); Calcium 8.5 mg/dL (8.4-10.2); Carbon Dioxide 21 mmol/L (22-32); Chloride 105 mmol/L (98-107); Estimated Glomerular Filt Rate > 60 mL/min (>60); Globulin 3.2 g/dL (1.7-4.1); Glucose 142 mg/dL (80-110); HEMOLYSIS 22 (0-50); Potassium 3.7 mmol/L (3.4-5.1); Sodium 137 mmol/L (137-145); Total Protein 7.2 g/dL (6.3-8.2)
[2024-05-30 20:39] LABS: NT-proBNP (BNP-Adult 18+) 38 pg/mL (<450); Troponin I < 0.012 ng/mL (0.01-0.034)
[2024-05-30 21:11] LABS: Prothrombin Time 11.7 SECONDS (9.4-12.5)
[2024-05-31] VITALS: BP 105/57; PULSE 82; RESP 20; O2SAT 93
--- NOTE | 2024-05-31 00:23 | ED.SOB ---
HPI - SOB/Dyspnea General Chief Complaint: Shortness of Breath/Dyspnea Stated Complaint: fever x 1 week, cough, short of breath Time Seen by Provider: 05/31/24 00:02 Source: patient Mode of arrival: Ambulatory Limitations: no limitations History of Present Illness HPI Narrative: 78-year-old female without chronic heart or lung problems, complains of one-week duration of dry cough, persistent cough, was seen in walk-in clinic yesterday and prescribed [employer] Perles, not working, still has cough and shortness of breath sensation. No lower extremity edema. No history of blood clots. No history of heart failure. She has used an inhaler in the past, but not recently with current illness. No recent inhaled or oral steroid use. Related Data Home Medications Medication Instructions Recorded Confirmed cholecalciferol (vitamin D3) 125 125 mcg PO DAILY 10/22/21 10/22/21 mcg (5,000 unit) tablet (Vitamin D3) Previous Rx's Medication Instructions Recorded meclizine 50 mg tablet 50 mg PO TID PRN dizziness #20 tabs 11/21/22 ondansetron 4 mg disintegrating 4 mg PO Q6H PRN nausea and 11/21/22 tablet vomiting #10 tabs Allergies Allergy/AdvReac Type Severity Reaction Status Date / Time codeine AdvReac Intermediate Bad Verified 11/21/22 07:28 headache Patient History Medical History Adenomatous colon polyp Osteopenia Surgical History History of colonoscopy with polypectomy History of hysterectomy History of tonsillectomy Social History household members: spouse Smoking Status: Former smoker Smoking Status: Former smoker alcohol intake frequency: a few times a month Exam Narrative Exam Narrative: GENERAL: Well-developed patient, in mild distress. HEAD: Atraumatic. Normocephalic. EYES: Pupils equal round and reactive. Extraocular motions intact. No scleral icterus. No injection or drainage. ENT: Nose without bleeding, purulent drainage. Throat without erythema, tonsillar hypertrophy or exudate. Airway patent. NECK: Trachea midline. Non tender CARDIOVASCULAR: Regular rate and rhythm without murmurs, gallops, or rubs. RESPIRATORY: Clear to auscultation. Breath sounds equal bilaterally. No wheezes, rales, or rhonchi. GASTROINTESTINAL: Abdomen soft, non-tender, nondistended. EXTREMITIES: No edema or joint tenderness. BACK: Nontender without deformity or crepitance. No flank tenderness. NEURO: AOx3. Motor functions grossly nonfocal SKIN: No rash or erythema of visible areas Initial Vital Signs Initial Vital Signs: Vital Signs Temperature 98.7 F 05/30/24 18:46 Pulse Rate 115 H 05/30/24 18:46 Respiratory Rate 22 05/30/24 18:46 Blood Pressure 152/63 H 05/30/24 18:46 Pulse Oximetry 93 05/30/24 18:46 Oxygen Delivery Method Room Air 05/30/24 18:46 Course Orders Ordered: Discontinued Medications Acetaminophen (Acetaminophen 325 Mg Tablet) 975 mg PO NOW ONE Stop: 05/30/24 18:53 Last Admin: 05/30/24 18:56 Dose: 975 mg Documented By: ANN Albuterol (Albuterol Hfa Prepack) 1 box MISC DIRECTED ONE Stop: 05/31/24 00:35 Last Admin: 05/31/24 00:45 Dose: 1 box Documented By: Vital Signs Vital signs: Vital Signs - 8 hr 05/30/24 18:46 05/30/24 19:59 05/30/24 20:07 Temperature 98.7 F 98.8 F Pulse Rate 115 H 103 H 104 H Respiratory Rate 22 20 Blood Pressure 152/63 H 102/62 Pulse Oximetry 93 94 94 Oxygen Delivery Method Room Air Room Air 05/30/24 20:07 05/30/24 20:30 05/30/24 20:30 Temperature Pulse Rate 89 Respiratory Rate 20 Blood Pressure 142/78 H 125/72 Pulse Oximetry 96 Oxygen Delivery Method 05/30/24 21:00 05/30/24 21:00 05/30/24 21:30 Temperature Pulse Rate 92 H Respiratory Rate 17 Blood Pressure 123/70 105/56 L Pulse Oximetry 95 Oxygen Delivery Method 05/30/24 21:30 05/30/24 22:00 05/30/24 22:00 Temperature Pulse Rate 88 88 Respiratory Rate 10 L 19 Blood Pressure 109/64 Pulse Oximetry 93 92 Oxygen Delivery Method 05/30/24 22:30 05/30/24 22:30 05/30/24 23:00 Temperature Pulse Rate 83 Respiratory Rate 20 Blood Pressure 108/64 115/75 Pulse Oximetry 92 Oxygen Delivery Method 05/30/24 23:00 05/30/24 23:30 05/30/24 23:30 Temperature Pulse Rate 86 85 Respiratory Rate 13 17 Blood Pressure 103/55 L Pulse Oximetry 94 92 Oxygen Delivery Method Room Air 05/31/24 00:00 05/31/24 00:00 Temperature Pulse Rate 82 Respiratory Rate 20 Blood Pressure 105/57 L Pulse Oximetry 93 Oxygen Delivery Method MDM - SOB/Dyspnea Lab Data Attestation: I reviewed the patient's lab results. Lab results narrative: White blood cell count 9600, hemoglobin 14.8, platelets adequate. Basic metabolic panel unremarkable. Liver functions normal. Troponin negative/unmeasurable. BNP low. Lactate 1.0 normal. 05/30/24 20:06 05/30/24 20:06 Labs: Lab Results 05/30/24 05/30/24 Range/Units 20:06 20:45 WBC 9.6 (4.5-11.0) X10^3/uL RBC 4.71 (4.0-5.2) X10^6/uL Hgb 14.8 (12.0-16.0) g/dL Hct 42.2 (36-46) % MCV 89.6 (80-100) fL MCH 31.4 (26-34) PG MCHC 35.1 (30-36) % RDW 13.6 (11.6-14.8) % Plt Count 132 L (150-400) X10^3/uL Neut % (Auto) 81.8 H (50-75) % Lymph % (Auto) 10.4 L (25-40) % [place] % (Auto) 7.3 (3-14) % Eos % (Auto) 0.2 L (2-4) % Baso % (Auto) 0.3 (0-2) % Neut # (Auto) 7900 H (9795-8274) /uL Lymph # (Auto) 1000 L (7997-0057) /uL [place] # (Auto) 700 (0-900) /uL Eos # (Auto) 0 (0-450) /uL Baso # (Auto) 0 (0-100) /uL PT 11.7 (9.4-12.5) SECONDS INR 1.0 (0.9-1.3) Sodium 137 (137-145) mmol/L Potassium 3.7 (3.4-5.1) mmol/L Chloride 105 (98-107) mmol/L Carbon Dioxide 21 L (22-32) mmol/L BUN 13 (7-17) mg/dL Creatinine 0.69 (0.52-1.04) mg/dL Estimated GFR > 60 (>60) mL/min BUN/Creatinine Ratio 18.8 (6-22) Glucose 142 H (80-110) mg/dL Lactate 1.0 (0.7-2.1) mmol/L Calcium 8.5 (8.4-10.2) mg/dL Total Bilirubin 1.2 (0.2-1.3) mg/dL AST 53 H (14-36) IU/L ALT 54 H (<35) IU/L Alkaline Phosphatase 69 (38-126) U/L Troponin I < 0.012 (0.01-0.034) ng/mL NT-Pro-B Natriuret Pep 38 (<450) pg/mL Total Protein 7.2 (6.3-8.2) g/dL Albumin 4.0 (3.5-5.0) g/dL Globulin 3.2 (1.7-4.1) g/dL Albumin/Globulin Ratio 1.3 (1.0-2.8) Imaging Data Chest x-ray: Radiologist's Impression: Close Chest X-Ray (Signed) Call,Cesar - 05/30/[address] [address] XRay Report Signed Patient: Shauna Alanis MR#: [id number] : 1945 Acct:[id number] Age/Sex: 78 / F Date of Service: 05/30/24 Loc: ED Accession Number: [id number] Procedure: XR chest 1V Ordering Provider: Rohith Mortensen MD PROCEDURE: XR CHEST 1V INDICATIONS: Shortness of breath TECHNIQUE: One view of the chest was acquired. COMPARISON: None. FINDINGS: Surgical changes and devices: None. Lungs and pleura: Lungs are clear. No pleural effusions or pneumothorax. Mediastinum: Mediastinal contours appear normal. Heart size is normal. Bones and chest wall: No suspicious bony lesions. Overlying soft tissues appear unremarkable. IMPRESSION: No acute cardiopulmonary abnormality is seen. Dictated by: Cesar Vasquez M.D. on 05/30/2024 at 19:54 Approved by: Cesar Vasquez M.D. on 05/30/2024 at 19:54 ECG Data Attestation: I personally reviewed and interpreted this ECG as follows: Interpretation: Normal sinus rhythm with a rate of 95, no obvious ST segment elevation or depression changes. CA 152, QRS 78, QTC 437. MDM Narrative Medical decision making narrative: 78-year-old female with one-week duration of cough that is dry, shortness of breath, using Tessalon Perles from clinic visit yesterday, still coughing. Afebrile, sirs screen negative. Lungs clear on auscultation in no respiratory distress, speaking in full sentences. Chest x-ray from triage negative. EKG and troponin negative sent from triage. Screening labs unremarkable. 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 Encouraged to continue taking her Tessalon that was prescribed yesterday. Trial of albuterol MDI with spacer to help control cough symptoms, both dispensed. Recheck advised with the regular doctor next couple of days if symptoms persist. Return precautions discussed. Home with . Discharge Plan Departure Patient Disposition: Home Clinical Impression: Upper respiratory infection, Shortness of breath Activity Restrictions/Additional Instructions: Ms Alanis, You have had wondering duration of cough, with some shortness of breath, seen in clinic in the last day or so and we have prescribed Tessalon Perles for cough. Still persisting in your cough with some shortness of breath. On examination you did not seem to have any wheezing or crackles on examination. EKG and blood testing was reassuring today. Chest x-ray shows no pneumonia per radiology report. Continue taking your Tessalon Perles for cough control. Consider use of albuterol inhaler 2 puffs 4 times daily with the use of a spacer to help with cough control symptoms, and your shortness of breath symptoms. Consider recheck with your regular doctor if not improved in the next couple of days. Return to this/nearest emergency department for any change worsening symptoms or any concerns prior. Thank you for allowing our team to evaluate you today. Prescriptions: No Action cholecalciferol (vitamin D3) [Vitamin D3] 125 mcg (5,000 unit) Tablet 125 mcg PO DAILY meclizine 50 mg tablet 50 mg PO TID PRN (Reason: dizziness) Qty: 20 0RF ondansetron 4 mg tablet,disintegrating 4 mg PO Q6H PRN (Reason: nausea and vomiting) Qty: 10 0RF Referrals: Gabbie Pettit PA-C [Primary Care Provider] - Stand Alone Forms: Patient Portal/API/Survey
[2024-05-31 00:30] VITALS: PULSE 95; O2SAT 94
[2024-05-31 00:31] VITALS: BP 116/66; PULSE 93; RESP 20; O2SAT 95
[2024-05-31] MEDS: ALBUTEROL HFA PREPACK 1 BOX MISC (00:45)
== END 2024-05-31 00:51 | disposition home or self-care (01) ==
PROVIDERS: Emergency Provider Emergency Medicine; PCP Physician Assistant Medical
DX: J06.9 Acute upper respiratory infection, unspecified (principal); R06.02 Shortness of breath; Z87.891 Personal history of nicotine dependence
CPT/HCPCS: 36415; 71045; 80053; 83605; 83880; 84484; 85025; 85610; 93005; 93010; 99283; 99284